=== PATIENT | male | born 1945 | race Caucasian/White ===

== ENCOUNTER 2016-11-23 04:10 | Observation (INO) | payer MEDICARE ==
[2016-11-15 10:33] LABS: HEMOGLOBIN 13.7 g/dL (13.6-17.8)
[2016-11-15 10:35] LABS: HEMATOCRIT 41.3 % (40.0-51.0)
[2016-11-15 10:52] LABS: BUN (BLOOD UREA NITROGEN) 13 MG/DL (6-23); CALCIUM, SERUM 9.2 MG/DL (8.5-10.4); CHLORIDE, SERUM 106 MMOL/L (96-112); CO2 (CARBON DIOXIDE) 30 MMOL/L (24-34); CREATININE 0.89 MG/DL (0.70-1.30); GFR AFRICAN AMERICAN 100 ML/MIN (>=60); GFR NON AFRICAN AMERICAN 87 ML/MIN (>=60); GLUCOSE, SERUM 107 MG/DL (60-99); POTASSIUM, SERUM 5.6 MMOL/L (3.5-5.3); SODIUM, SERUM 141 MMOL/L (135-148)
[~2016-11-23] VITALS: Ht 175.3 cm; Wt 89.6 kg
--- NOTE | ~2016-11-23 | OP ---
Record Of Operation [facility] [address] [place]. [address] NAME: CHINA CABRALES : 47 STATUS : DIS Lina PAT#: [id number] AGE: 71 ADM/REG DATE : 11/23/16 MR#: [id number] REPORT SERV DATE: 11/26/16 DICTATED BY: MAKEDA MART II DATE: 11/26/16 REPORT STATUS : Draft TRANSCRIBED BY: CESIA DATE: 11/26/16 DATE OF PROCEDURE: 11/23/2016 PREOPERATIVE DIAGNOSES: 1. Right greater than left upper extremity radiculopathy. 2. Multilevel cervical stenosis. 3. Discogenic neck pain. POSTOPERATIVE DIAGNOSES: 1. Right greater than left upper extremity radiculopathy. 2. Multilevel cervical stenosis. 3. Discogenic neck pain. PROCEDURE: 1. C4-5, C5-6, C6-7 anterior interbody arthrodesis. 2. C4-5, C5-6, C6-7 application of prosthetic device. 3. Anterior instrumentation, C4 to C7 (four segments), use of allograft substitute, and bone marrow aspirate. 4. Use of the microscope. FLUIDS: Approximately 1400 mL LR. ESTIMATED BLOOD LOSS: 25 mL. DRAINS: One drain. COMPLICATIONS: None. IMPLANTS: Alphatec. PREOPERATIVE HISTORY: This is a very friendly 71-year-old gentleman, well known to me. We have worked on his lumbar spine remotely. His son also works at the hospital and we have seen him recently for ongoing cervical complaints. I discussed with him and his the pros and cons of continuing nonoperative care versus surgical intervention. We discussed the anterior approach and the procedure itself. We discussed the recovery and the rates of success versus failure to improve neck pain and upper extremity complaints respectively. We discussed the complications. We discussed the risk of infection and bleeding, as well as difficulty swallowing, and vocal cord paralysis. We discussed the more rare complications such as paralysis and . DESCRIPTION OF PROCEDURE: After informed consent was obtained, the patient was brought to the operating room at his request, and general anesthesia was achieved. He was placed in the supine position and the neck and iliac crest prepped and draped in a sterile fashion. A 5 mL of bone marrow were aspirated followed by a right-sided longitudinal incision. The interval was explored and the deep cervical fascia was incised. The subperiosteal exposure was now completed and the safety belt installer retractor was placed. The Lawrence pins were now placed, Record Of Operation [facility] [address] [place]. [address] NAME: CHINA CABRALES : 47 STATUS : DIS Lina PAT#: [id number] AGE: 71 ADM/REG DATE : 11/23/16 MR#: [id number] REPORT SERV DATE: 11/26/16 DICTATED BY: MAKEDA MART II DATE: 11/26/16 REPORT STATUS : Draft TRANSCRIBED BY: CESIA DATE: 11/26/16 at this point, the microscope was brought into place and under microscopic visualization, the diskectomy was performed at C4-5. The endplates were now prepared with the pituitary rongeurs, Kerrison rongeurs, and curettes. The parallel endplates were now created at C4 and C5. The posterior vertebral body osteophytes were now removed with a high-speed bur, and Kerrison rongeurs, and the curettes. The posterior longitudinal ligament was now removed, and the anterior canal and foramen were well decompressed. The nerve hook was now passed out bilateral foramen. Next, the prosthetic device was then trialed, and chosen, and placed at C4-5. This contained allograft substitute. The excellent fit was obtained. Next, the C5-6 region was now also prepared with the diskectomy. The endplates were now prepared with the pituitary rongeurs, Kerrison rongeurs, and the curettes. The posterior vertebral body osteophytes were now removed and the canal and foramen were well decompressed. The prosthetic device was then placed at C5-6. Lastly, the diskectomy was now completed at C6-7. Once again, the pituitary rongeurs, Kerrison rongeurs, the curettes were used. The high-speed bur was also used followed by removal of the posterior vertebral body osteophytes and the posterior longitudinal ligament. We had decided to also perform the procedure at C6-7 after reviewing the MRI again. There simply seemed to be more degeneration and disk space collapse than I recalled from the office. At this point, this disk again was completely removed and the posterior vertebral body osteophytes were removed including the posterior longitudinal ligament. The prosthetic device was then well placed at C6-7. Next, the Lawrence pins were removed and the anterior fixation device placed with two screws in the C4, C5, C6, and C7. The multiplanar imaging confirmed acceptable placement of the implants. The area was found to be hemostatic with the exception of some mild cancellous bone bleeding for which a deep drain was placed. At this point, the standard closure was performed and the patient was then extubated and transferred to PACU in stable condition. MADELEINE/CESIA Makeda Matr II, M.D. / [id number] CC: Pamela Johnson II, M.D.
[~2016-11-23 04:10] MED LIST: CYANO1000T PO; ENDOCET1 TAB PO; EQUATE LAXATIVE PO; FISH-EPA1000 MG PO; LOFIBRA134 MG PO; MIRALAX POWDER1 PKT PO; MOBIC15 MG PO; MULTIPLE VIT PO; PRILOSEC40 MG PO; VITAMIN C PO
[2016-11-23 06:06] LABS: BUN (BLOOD UREA NITROGEN) 20 MG/DL (6-23); CALCIUM, SERUM 9.1 MG/DL (8.5-10.4); CHLORIDE, SERUM 108 MMOL/L (96-112); CO2 (CARBON DIOXIDE) 27 MMOL/L (24-34); CREATININE 1.06 MG/DL (0.70-1.30); GFR AFRICAN AMERICAN 82 ML/MIN (>=60); GFR NON AFRICAN AMERICAN 71 ML/MIN (>=60); GLUCOSE, SERUM 95 MG/DL (60-99); POTASSIUM, SERUM 4.1 MMOL/L (3.5-5.3); SODIUM, SERUM 140 MMOL/L (135-148)
[2016-11-24] MEDS ORDERED: V2 PO (09:07)
[2016-11-24] MEDS ORDERED: PERCOCET 10/3251 TAB PO (09:07)
== END 2016-11-24 13:46 | disposition home or self-care (01) ==
LOC: ENRESERVTM → ENRESERV → ENRESERVDT → 3JRC 04:10 → SDC/OF 04:10 → 3JRC 12:54
PROVIDERS: Orthopaedic Surgery
PROC: 079T3ZX Drainage of Bone Marrow, Percutaneous Approach, Diagnostic (ICD-10-PCS; 2016-11-23)
PROC: 0RG20K0 Fusion of 2 or more Cervical Vertebral Joints with Nonautologous Tissue Substitute, Anterior Approach, Anterior Column, Open Approach (ICD-10-PCS; principal; 2016-11-23 05:45)
DX: M48.02 Spinal stenosis, cervical region (principal); M50.123 Cervical disc disorder at C6-C7 level with radiculopathy; M50.11 Cervical disc disorder with radiculopathy, high cervical region; M06.9 Rheumatoid arthritis, unspecified; G47.33 Obstructive sleep apnea (adult) (pediatric); K21.9 Gastro-esophageal reflux disease without esophagitis; E66.01 Morbid (severe) obesity due to excess calories; Z90.49 Acquired absence of other specified parts of digestive tract; Z98.890 Other specified postprocedural states; Z88.8 Allergy status to other drugs, medicaments and biological substances; Z79.899 Other long term (current) drug therapy
CPT/HCPCS: 80048; 82962; 85014; 85018; 87641; 88304; 88311; 93005; 96374; 96375; 96376; A9270-GY; C1713; G0378; J0360; J0690; J1170; J2250; J2270; J2405; J2710; J3010